=== PATIENT | female | born 1990 | race Caucasian/White ===

== ENCOUNTER 2020-06-22 23:56 | Emergency (ER) | payer BC ==
[~2020-06-22] VITALS: Ht 170.2 cm; Wt 61.2 kg
[2020-06-23 00:01] VITALS: Ht 170.2 cm; Wt 61.2 kg
[2020-06-23 01:15] VITALS: BP 118/62
== END 2020-06-23 01:52 | disposition home or self-care (01) ==
LOC: ED 23:56
DX: L25.1 Unspecified contact dermatitis due to drugs in contact with skin (principal); R11.0 Nausea; T36.8X5A Adverse effect of other systemic antibiotics, initial encounter; Y92.89 Other specified places as the place of occurrence of the external cause
CPT/HCPCS: J1200; J2405; J2930; J7030